=== PATIENT | male | born 1975 | race Caucasian/White ===

== ENCOUNTER 2021-06-29 11:57 | Outpatient (CLI) | payer OTHER | END 2021-06-29 11:58 | disposition critical access hospital (66) | LOC: EMS 11:57 | DX: R07.89 Other chest pain (principal); R20.2 Paresthesia of skin; R61 Generalized hyperhidrosis | CPT/HCPCS: A0425; A0427 ==

== ENCOUNTER 2021-06-29 12:26 | Emergency (ER) | payer OTHER ==
--- NOTE | 2021-06-29 12:40 | ED Physician Documentation ---
PD HPI CHEST PAIN - Stated complaint Stated Complaint: CP - Chief complaint Chief Complaint: Cardiac - History obtained from History obtained from: Patient, EMS - History of Present Illness Timing - onset: How many hours ago (1) Timing - details: Abrupt onset Pain level max: 9 Pain level now: 1 Quality: Pressure, Aching, Sharp Location: Substernal Radiation: No: Jaw, Neck, Back, Abdominal, Left upper extremity, Right upper extremity Improved by: Nothing. No: Rest, Oxygen, Nitro, ASA, Antacids, Other medication Worsened by: No: Exertion, Inspiration, Eating, Movement, Palpation, Position Associated symptoms: Nausea. No: Shortness of air, Diaphoresis, Vomiting, Feeling faint / dizzy, General Weakness Similar symptoms before: Has not had sx before - Additional information Additional information: Patient is a 46-year-old male who presents to the emergency department with chest pain. This occurred about an hour prior to arrival. Described as achy and dull, center of the chest. Nothing made it better or worse. He recently was supposed to be started on omeprazole for GERD. Has not started this yet. Normal EKGs with EMS. He states that the pain is mostly resolved now. Drink coffee this morning. Had root beer today as well. No cardiac history. Review of Systems Ten Systems: 10 systems reviewed and negative Constitutional: denies: Fever, Chills Throat: denies: Sore throat Respiratory: denies: Dyspnea, Cough GI: denies: Vomiting, Diarrhea : denies: Dysuria, Frequency, Hesitancy Skin: denies: Rash Musculoskeletal: denies: Neck pain Neurologic: denies: Headache PD PAST MEDICAL HISTORY - Past Medical History Past Medical History: Yes GI: GERD - Present Medications Home Medications: Ambulatory Orders Medication Instructions Recorded Confirmed Omeprazole [PriLOSEC] 20 mg PO DAILY 06/29/21 06/29/21 - Allergies Allergies/Adverse Reactions: Allergies Allergy/AdvReac Type Severity Reaction Status Date / Time No Known Drug Allergies Allergy Verified 06/29/21 12:30 - Living Situation Living Arrangement: reports: At home - Social History Smoking Status: Former smoker Does the pt have substance abuse?: No - Family History Family history: reports: Non contributory PD ED PE NORMAL - Vitals Vital signs reviewed: Yes - General General: Alert and oriented X 3, No acute distress, Well developed/nourished - HEENT HEENT: PERRL, Moist mucous membranes - Neck Neck: Supple, no meningeal sign - Cardiac Cardiac: RRR, No murmur, Strong equal pulses - Respiratory Respiratory: No respiratory distress, Clear bilaterally - Abdomen Abdomen: Soft, Non tender, Non distended - Derm Derm: Warm and dry - Extremities Extremities: No edema, No calf tenderness / cord - Neuro Neuro: Alert and oriented X 3 - Psych Psych: Normal mood, Normal affect Results - Vitals Vitals: Vital Signs - 24 hr 06/29/21 06/29/21 12:30 14:38 Temperature 36.8 C Heart Rate 89 84 Respiratory 12 10 L Rate Blood Pressure 128/84 H 119/73 O2 Saturation 98 99 Oxygen O2 Source Room air - EKG (time done) 1230 Rate: Rate (enter#) (88) Rhythm: NSR [place]: Normal Intervals: Normal MO QRS: Normal Ischemia: Normal ST segments Computer interpretation: Agree with computer - Labs Labs: Laboratory Tests 06/29/21 06/29/21 06/29/21 12:41 12:41 12:41 WBC 6.5 RBC 4.34 L Hgb 13.8 L Hct 40.4 L MCV 93.1 MCH 31.8 H MCHC 34.2 RDW 11.9 L Plt Count 188 MPV 11.5 H Neut # (Auto) 3.7 Lymph # (Auto) 2.0 [place] # (Auto) 0.4 Eos # (Auto) 0.3 Baso # (Auto) 0.1 Absolute Nucleated RBC 0.00 Nucleated RBC % 0.0 Sodium 139 Potassium 3.8 Chloride 103 Carbon Dioxide 28 Anion Gap 8.0 BUN 11 Creatinine 0.8 Estimated GFR (MDRD) 104 Glucose 138 H Calcium 9.1 Total Bilirubin 0.7 AST 50 H ALT 96 H Alkaline Phosphatase 81 Troponin I High Sens < 2.3 L Total Protein 7.2 Albumin 4.3 Globulin 2.9 Albumin/Globulin Ratio 1.5 Lipase 40 06/29/21 14:29 WBC RBC Hgb Hct MCV MCH MCHC RDW Plt Count MPV Neut # (Auto) Lymph # (Auto) [place] # (Auto) Eos # (Auto) Baso # (Auto) Absolute Nucleated RBC Nucleated RBC % Sodium Potassium Chloride Carbon Dioxide Anion Gap BUN Creatinine Estimated GFR (MDRD) Glucose Calcium Total Bilirubin AST ALT Alkaline Phosphatase Troponin I High Sens < 2.3 L Total Protein Albumin Globulin Albumin/Globulin Ratio Lipase - Rads (name of study) cxr Radiology: Final report received, EMP read contemporaneously, See rad report (no acute abnormality) PD MEDICAL DECISION MAKING - ED course Complexity details: reviewed results, re-evaluated patient, considered differential (No ST elevation AK, no aortic dissection, no PE, no tension pneumothorax, no aortic aneurysm), d/w patient, d/w family ED course: 46-year-old male with chest pain today. Negative troponin x2. No significant lab abnormalities other than a mild elevation in his LFTs. Abdomen is soft, nontender nondistended on serial exam. Possible biliary colic, but no evidence of cholecystitis. Possible GERD? He has not started his prescribed PPI yet and does have an endoscopy scheduled. Symptoms not consistent with unstable angina. Patient will follow up with his doctor for further care. No evidence of PE. Patient counseled regarding signs and symptoms for which I believe and urgent re-evaluation would be necessary. Patient with good understanding of and agreement to plan and is comfortable going home at this time This document was made in part using voice recognition software. While efforts are made to proofread this document, sound alike and grammatical errors may occur. Departure - Departure Disposition: 01 Home, Self Care Clinical Impression: Chest pain Qualifiers: Chest pain type: unspecified Qualified Code(s): R07.9 - Chest pain, unspecified Condition: Good Instructions: ED Chest Pain Atypical Unkn Cause Follow-Up: your,doctor in 1 week [Other] Comments: Please start the omeprazole at home. The cause of your symptoms is unclear today, but could be related to gastroesophageal reflux or potentially biliary colic. Your liver function tests were minimally elevated, these should be rechecked in about a week with your doctor. Return if you worsen. Your heart tests are normal today. Your doctor may want to schedule you for a cardiac stress test next week. Discharge Date/Time: 06/29/21 15:15
[2021-06-29 12:47] LABS: BASOPHILS # (AUTO) 0.1 10^3/uL (0.0-0.1); BASOPHILS % (AUTO) 0.8 %; EOSINOPHILS # (AUTO) 0.3 10^3/uL (0.0-0.7); EOSINOPHILS % (AUTO) 5.2 %; HCT - HEMATOCRIT 40.4 % (42.0-52.0); HGB - HEMOGLOBIN 13.8 g/dL (14.0-18.0); LYMPHOCYTES % (AUTO) 31.2 %; MEAN CORPUSCULAR HEMOGLOBIN 31.8 pg (27.0-31.0); MEAN CORPUSCULAR HGB CONC 34.2 g/dL (32.0-36.0); MEAN CORPUSCULAR VOLUME 93.1 fL (80.0-94.0); MEAN PLATELET VOLUME 11.5 fL (7.4-11.4); MONOCYTES # (AUTO) 0.4 10^3/uL (0.0-1.0); NEUTROPHILS # (AUTO) 3.7 10^3/uL (1.5-6.6); NEUTROPHILS % (AUTO) 56.2 %; PLT - PLATELET COUNT 188 10^3/uL (130-450); RED BLOOD COUNT 4.34 10^6/uL (4.70-6.10); RED CELL DISTRIBUTION WIDTH 11.9 % (12.0-15.0); WHITE BLOOD COUNT 6.5 x10^3/uL (4.8-10.8)
--- NOTE | 2021-06-29 12:49 | XRAY Report ---
PROCEDURE: Chest 1 View X-Ray INDICATIONS: Chest Pain TECHNIQUE: One view of the chest was acquired. COMPARISON: None FINDINGS: Surgical changes and devices: None. Lungs and pleura: No pleural effusions or pneumothorax. Lungs are clear. Mediastinum: Mediastinal contours appear normal. Heart size is normal. Bones and chest wall: No suspicious bony lesions. Overlying soft tissues appear unremarkable. IMPRESSION: No acute cardiopulmonary disease process. Reviewed by: Beverley Ulrich MD, PhD on 06/29/2021 12:48 PM PDT Approved by: Beverley Ulrich MD, PhD on 06/29/2021 12:48 PM PDT Station ID: [id number]
[2021-06-29 13:01] LABS: ALBUMIN 4.3 g/dL (3.2-5.5); ALBUMIN/GLOBULIN RATIO 1.5 (1.0-2.2); BILIRUBIN,TOTAL 0.7 mg/dL (0.2-1.0); CALCIUM 9.1 mg/dL (8.5-10.3); CREATININE 0.8 mg/dL (0.6-1.2); POTASSIUM 3.8 mmol/L (3.5-5.0); TOTAL PROTEIN 7.2 g/dL (6.7-8.2)
[2021-06-29 14:38] VITALS: BP 119/73
== END 2021-06-29 15:15 | disposition home or self-care (01) ==
LOC: EDUNIT# → ED 12:26
DX: R07.9 Chest pain, unspecified (principal); R94.5 Abnormal results of liver function studies; Z87.891 Personal history of nicotine dependence
CPT/HCPCS: 36415; 80053; 83690; 84484; 85025; 93005; 99284

== ENCOUNTER 2021-07-02 07:04 | Outpatient (CLI) | payer OTHER ==
--- NOTE | 2021-07-02 10:47 | MRI Report ---
PROCEDURE: Shoulder RT W/O INDICATIONS: RT SHOULDER PAIN TECHNIQUE: Noncontrast oblique coronal T2 fast spin echo with fat saturation, oblique sagittal T1 spin echo and T2 fast spin echo with fat saturation, axial T1 spin echo and T2 fast spin echo with fat saturation t hrough the shoulder. COMPARISON: None. FINDINGS: Image quality: Excellent. Rotator cuff: There is mild supraspinatus tendinosis. Infraspinatus, teres minor, and subscapularis t endons appear intact. There is no significant rotator cuff muscle atrophy. Bones and bursae: No acute trabecular bone injury. Small chronic traction cystic changes are seen in the posterosuperior humeral head. Moderate degenerative changes are seen at the acromioclavicular bulmaro nt with mild subchondral edema and marginal osteophyte formation. There is no significant glenohumera l effusion or subacromial/subdeltoid bursal fluid. Capsule and soft tissues: No displaced labral tear is identified. The visualized portion of the bicep s long head tendon is intact. There is mild partial effacement of the normal fat in the rotator inter karlo. The inferior glenohumeral ligament is mildly thickened. IMPRESSION: 1. Mild supraspinatus tendinosis. No significant rotator cuff tendon tear is seen. 2. Moderate acromioclavicular joint osteoarthrosis. 3. Partial effacement of the rotator interval fat and mild thickening of the inferior glenohumeral l igament are nonspecific, but can be seen in the setting of the clinical syndrome of adhesive capsulit is. Reviewed by: Miguel Dillon MD on 07/02/2021 10:46 AM PDT Approved by: Miguel Dillon MD on 07/02/2021 10:46 AM PDT Station ID: [id number]
== END 2021-07-02 07:05 | disposition home or self-care (01) ==
LOC: DI 07:04
DX: M19.011 Primary osteoarthritis, right shoulder (principal); M75.91 Shoulder lesion, unspecified, right shoulder

== ENCOUNTER 2021-08-20 11:15 | Outpatient (CLI) | payer OTHER ==
--- NOTE | 2021-08-20 13:17 | XRAY Report ---
PROCEDURE: Wrist 3 View RT INDICATIONS: RIGHT WRIST PAIN TECHNIQUE: 3 views of the wrist were acquired. COMPARISON: None FINDINGS: Bones: No fractures or dislocations. No suspicious bony lesions. Soft tissues: No suspicious soft tissue calcifications. IMPRESSION: No acute findings. Reviewed by: Sean Rader MD on 08/20/2021 1:16 PM PDT Approved by: Sean Rader MD on 08/20/2021 1:16 PM PDT Station ID: [id number]
--- NOTE | 2021-08-20 13:19 | XRAY Report ---
PROCEDURE: Shoulder 3 View RT INDICATIONS: Right shoulder pain TECHNIQUE: 4 views of the shoulder were acquired. COMPARISON: None. FINDINGS: There is no fracture or dislocation. Glenohumeral joint space is maintained without arthritic feature s. There is acromioclavicular joint space narrowing with osteophytosis and mild hypertrophy of the di stal clavicle. There may be some thickening of the acromioclavicular ligament superiorly. IMPRESSION: Degenerative changes of the acromial clavicular joint with some thickening of the acromi oclavicular ligament which may be edematous and acute in nature. Reviewed by: Sean Rader MD on 08/20/2021 1:18 PM PDT Approved by: Sean Rader MD on 08/20/2021 1:18 PM PDT Station ID: [id number]
== END 2021-08-20 11:16 | disposition home or self-care (01) ==
LOC: DI.N 11:15
PROVIDERS: ATTEND Physician Assistant
DX: M25.531 Pain in right wrist (principal); M19.011 Primary osteoarthritis, right shoulder